=== PATIENT | female | born 2000 | race African-American/Black ===

== ENCOUNTER 2018-01-25 00:10 | Emergency (ER) | payer OTHER ==
[~2018-01-25] VITALS: Ht 162.6 cm; Wt 74.8 kg
[2018-01-25] MEDS ORDERED: SULFAMETH/TRIMETH 800/160 MG TABLET PO ONE (00:45)
[2018-01-25] MEDS ORDERED: SULFAMETH/TRIMETH 800/160 MG TABLET ONE (00:52)
[2018-01-25 01:31] VITALS: BP 118/66
== END 2018-01-25 01:32 | disposition home or self-care (01) ==
LOC: ER 00:14
DX: L08.9 Local infection of the skin and subcutaneous tissue, unspecified (principal); B95.8 Unspecified staphylococcus as the cause of diseases classified elsewhere
CPT/HCPCS: A4663